=== PATIENT | female | born 1940 | race Caucasian/White ===

== ENCOUNTER 2023-07-14 10:31 | Outpatient (CLI) | payer OTHER | END 2023-07-14 10:40 | disposition home or self-care (01) | LOC: TOM 10:31 | PROVIDERS: ATTEND Internal Medicine | DX: R22.1 Localized swelling, mass and lump, neck (principal); J45.30 Mild persistent asthma, uncomplicated; C50.312 Malignant neoplasm of lower-inner quadrant of left female breast; C54.1 Malignant neoplasm of endometrium ==

== ENCOUNTER 2025-04-23 12:57 | Outpatient (CLI) | payer OTHER | END 2025-04-23 13:00 | disposition home or self-care (01) | LOC: SONOGRAMA 12:57 | PROVIDERS: ATTEND Internal Medicine | DX: M25.531 Pain in right wrist (principal); G56.01 Carpal tunnel syndrome, right upper limb ==